=== PATIENT | female | born 1945 | race Caucasian/White ===

== ENCOUNTER 2020-12-19 12:00 | Inpatient (IN) | payer MEDICARE, BC ==
[2020-12-15 10:30] LABS: BASOPHILS # (AUTO) 0.1 X10'3 (0-0.2); BASOPHILS % (AUTO) 0.8 % (0-1); EOSINOPHILS # (AUTO) 0.3 X10'3 (0-0.9); LYMPHOCYTES # (AUTO) 2.1 X10'3 (1.1-4.8); LYMPHOCYTES % (AUTO) 26.1 % (21-51); MEAN CORPUSCULAR HEMOGLOBIN 29.3 PG (27.0-31.0); MEAN CORPUSCULAR HGB CONC 33.9 g/dL (33.0-36.5); MEAN CORPUSCULAR VOLUME 86.4 FL (78-98); MEAN PLATELET VOLUME 7.7 FL (7.4-10.4); MONOCYTES # (AUTO) 0.5 X10'3 (0-0.9); MONOCYTES % (AUTO) 5.8 % (2-12); NEUTROPHILS # (AUTO) 5.2 X10'3 (1.8-7.7); NEUTROPHILS % (AUTO) 63.3 % (42-75); PRE OP HEMATOCRIT 37.9 % (35.0-45.0); PRE OP HEMOGLOBIN 12.9 g/dL (12.0-16.0); PRE OP PLATELET COUNT 286 X10'3 (140-440); RED BLOOD COUNT 4.39 X10'6 (4.20-5.60)
[2020-12-15 10:34] LABS: CLARITY,URINE CLEAR (Clear); COLOR,URINE STRAW (Yellow); GLUCOSE, URINE NEGATIVE (Neg); KETONES,URINE NEGATIVE (Neg); PROTEIN,URINE NEGATIVE (Neg); UA COLLECTION TYPE CLN CATCH MIDSTREAM
[2020-12-15 10:35] LABS: LEUKOCYTE ESTERASE ,URINE TRACE (Neg); NITRITES, URINE NEGATIVE (Neg); OCCULT BLOOD,URINE TRACE-LYSED (Neg); UROBILINOGEN,URINE 0.2 E.U/dL (0.2-1.0)
[2020-12-15 10:36] LABS: BACTERIA,URINE FEW /HPF (Neg); MUCUS STRANDS NONE SEEN /LPF (Neg); RBC,URINE 0-2 /HPF (0-2); SQUAMOUS EPITHELIAL CELL,UR FEW /LPF (FEW); TRANSITIONAL EPI CELLS,URINE FEW /HPF; WBC,URINE 0-4 /HPF (0-4)
[2020-12-15 10:43] LABS: PRE OP PROTIME 10.3 SECONDS (9.0-12.0)
[2020-12-15 10:44] LABS: ALBUMIN 4.1 G/DL (3.4-5.0); ALBUMIN/GLOBULIN RATIO 0.9 (1.1-1.5); ALKALINE PHOSPHATASE 105 IU/L (46-116); BLOOD UREA NITROGEN 17 MG/DL (7-18); BUN/CREATININE RATIO 20.2 (6.6-38.0); CALCIUM 8.9 MG/DL (8.5-10.1); CHLORIDE 104 MMOL/L (99-107); CREATININE 0.84 MG/DL (0.40-0.90); PRE OP ALT 23 U/L (30-65); PRE OP ANION GAP 9 (8-16); PRE OP AST 14 U/L (10-37); PRE OP BILIRUB, TOTAL 0.5 MG/DL (0.0-1.0); PRE OP GLUCOSE 92 MG/DL (70-104); PRE OP POTASSIUM 4.1 MMOL/L (3.4-5.1); PRE OP SODIUM 142 MMOL/L (135-145); TOTAL CARBON DIOXIDE 29.5 MMOL/L (24-32); TOTAL PROTEIN 8.8 G/DL (6.4-8.2); eGFR 66 ML/MIN
[~2020-12-19] VITALS: Ht 152.4 cm; Wt 72.1 kg
[~2020-12-19 12:00] MED LIST: ACET-2119 PO; AMLO2.5T2 PO; ATOR40TA PO; BISA5TAB56 PO; CHOL20004 PO; ESCI5TAB PO; FAMO-128 PO; RESTASIS EACHEYE
[2020-12-20] MEDS ORDERED: ringers solution, lacted 1,000 ML IV SCH (05:00)
[2020-12-20] MEDS ORDERED: famotidine 20mg tablet PO ONE (05:30)
[2020-12-20] MEDS ORDERED: cefazolin/dext.iso 2gm/50ml 50 ML IV ONE (05:30)
[2020-12-20] MEDS ORDERED: nitroPRUSSIDE (NIPRIDE) (200MCG/ML) 100ML Drip IV SCH (06:00)
[2020-12-20] MEDS ORDERED: phenylephrine inj 50 MG in normal saline 250ml IV soln 245 ML IV SCH (06:00)
[2020-12-27] VITALS (20 sets, daily range): BP systolic 113–165; BP diastolic 44–73
[2020-12-27] MEDS ORDERED: phenylephrine inj 50 MG in normal saline 250ml IV soln 245 ML IV SCH (05:30)
[2020-12-27] MEDS ORDERED: famotidine 20mg tablet PO ONE (05:30)
[2020-12-27] MEDS ORDERED: cefazolin/dext.iso 2gm/50ml 50 ML IV ONE (05:30)
[2020-12-27] MEDS ORDERED: ringers solution, lacted 1,000 ML IV SCH ×2 (05:30→08:05)
[2020-12-27] MEDS ORDERED: nitroPRUSSIDE (NIPRIDE) (200MCG/ML) 100ML Drip IV SCH (05:30)
[2020-12-27] MEDS ORDERED: LIDOcaine 1% (10mg/ml) 2ml vial ONE (07:16)
[2020-12-27] MEDS ORDERED: BUPIVAcaine/PF 2.5 mg/ml (0.25%) 30ml vial ONE (07:16)
[2020-12-27] MEDS ORDERED: heparin 10,000 units/1 ML INJ ONE (07:17)
[2020-12-27] MEDS ORDERED: morphine 4 MG/ML inj SYRINge IV PRN (08:05)
[2020-12-27] MEDS ORDERED: PHENYLephrine 10mg/ml inj. 100 MG in normal saline 250ml IV soln 240 ML IV SCH (08:05)
[2020-12-27] MEDS ORDERED: nitroPRUSSIDE sod inj. 50 MG in dextrose 5%-water 248 ML IV SCH (08:05)
[2020-12-27] MEDS ORDERED: fentaNYL/PF 50MCG/1 ML 2ML syringe IV PRN ×2 (08:05)
[2020-12-27] MEDS ORDERED: hydrALAZINE 20mg/ml inj. IV PRN (08:05)
[2020-12-27] MEDS ORDERED: ondansetron/PF 4mg/2ml inj IV PRN (08:05)
[2020-12-27] MEDS ORDERED: morphine 2 MG/ML inj. syringe IV PRN (08:05)
[2020-12-27] MEDS ORDERED: labetalol 20mg/4ml (5mg/ml) syringe IV PRN (08:05)
[2020-12-27] MEDS ORDERED: midazolam 1 mg/ML 2ml injection ONE (08:08)
[2020-12-27] MEDS ORDERED: fentaNYL/PF 50MCG/1 ML 2ML syringe ONE (08:08)
[2020-12-27] MEDS ORDERED: LIDOcaine 2% (20mg/ml) 5ml vial ONE (08:10)
[2020-12-27] MEDS ORDERED: ondansetron/PF 4mg/2ml inj ONE (08:10)
[2020-12-27] MEDS ORDERED: rocuronium 10mg/ml inj IV ONE (08:10)
[2020-12-27] MEDS ORDERED: neostigmine methylsulfate 1 MG/ML 10ml vial ONE (08:10)
[2020-12-27] MEDS ORDERED: propofol inj 20 ML IV ONE (08:10)
[2020-12-27] MEDS ORDERED: dexamethasone sod phosphate 4mg/ml inj. ONE (08:10)
[2020-12-27] MEDS ORDERED: glycopyrrolate 0.2mg/ml inj ONE (08:10)
[2020-12-27] MEDS ORDERED: desflurane 240ml liquid inh. IH ONE (08:55)
[2020-12-27] MEDS ORDERED: heparin 1,000unit/ml 10ml vial 10 ML ONE (09:44)
--- NOTE | 2020-12-27 11:08 | NUR ---
Received from OR via ICU BED, accompanied by Anesthesiologist DR REILLY and report given by Anesthesiolgist. PT HAD A 10L MASK ON AT 100% 02 SATURATION. SHE HAS A 20G PERIPHERAL IV IN L WRIST RUNNING LR AT 100ML/HR. RIN DRAIN MAINTAINING SUCTION, SCANT DRAINAGE IN BULB. DRESSING TO L NECK WITH SLIGHT SHADOWING OF BLOOD. SKIN AROUND DRESSING SUPPLE AND NOT SWOLLEN. WILL CONTINUE TO ASSESS. PUSH, PULLS, BOAT MASTER, AND BUE/LE ALL EQUAL. TONGUE MIDLINE, SMILE SYMMETRICAL. SCDS ON. WOOTEN CATH IN PLACE WITH CLEAR, PALE YELLOW URINE IN ATRIUM. ART LINE IN RUE. Addendum: 12/27/20 at 1138 by Ramon Mujica RN, RN Amended: Links added.
[2020-12-27] MEDS ORDERED: acetaminophen 325mg tablet PO PRN (11:30)
[2020-12-27] MEDS ORDERED: bisacodyl 5mg tablet.DR PO PRN (11:30)
[2020-12-27] MEDS ORDERED: famotidine 20mg tablet PO PRN (11:30)
[2020-12-27] MEDS ORDERED: LIDOcaine 2% 10ml TOPICAL JELLY (Urojet) TP ONE (12:00)
--- NOTE | 2020-12-27 13:18 | NUR ---
Report called to receiving nurse. Transferred via ICU BED WITH ONE BAG OF Belongings . GLASSES INCLUDED IN BAG. Special Issues communicated to receiving nurse. EVELYN MONTIEL. VSS. STATES PAIN IS TOLERABLE. PATIENT NUROLOGICALLY INTACT, RIN AND DRESSING CDI. BLOOD STILL PRESENT TO DRESSING BUT HAS NOT EXTENDED SINCE ADMISSION TO PACU. 3 PERSON PASSIVE TRANSFER TO PCU BED. POSITOINED TO COMFORT AND RN PRESENT TO ACCEPT CARE AT THIS TIME. Addendum: 12/27/20 at 1339 by Ramon Mujica RN RN Amended: Links added.
--- NOTE | 2020-12-27 14:16 | NUR ---
Patient neurologically intact.
[2020-12-27] MEDS: HYDROmorphone inj. 0.5 MG/0.5 ML DISP.SYRIN IV PRN ×2 (15:05→23:18)
--- NOTE | 2020-12-27 17:33 | NUR ---
patient remains neurologically intact
--- NOTE | 2020-12-27 18:15 | NUR ---
Problems reprioritized. Patient report given, questions answered & plan of care reviewed with Sarita MONTIEL. Patient resting comfortably in no acute distress. She remains neurologically intact.
[2020-12-27] MEDS: cycloSPORINE 0.05% ophthalmic emulsion EACHEYE SCH (20:23)
[2020-12-28 02:00] VITALS: BP 148/82
--- NOTE | 2020-12-28 06:24 | NUR ---
Patient in room PCU 3024. I have received report from Deborah MONTIEL and had the opportunity to ask questions and assume patient care. Patient resting in bed in no acute distress.
[2020-12-28 07:00] VITALS: BP 135/54
[2020-12-28] MEDS ORDERED: cholecalciferol (vitamin D3) 1,000 unit (25mcg) tablet PO SCH (08:00)
[2020-12-28] MEDS ORDERED: ESCITALOPRAM OXALATE 5 MG TABLET PO SCH (08:00)
[2020-12-28] MEDS ORDERED: amLODIPine 5mg tablet PO SCH (08:00)
[2020-12-28] MEDS ORDERED: atorvastatin 20mg tablet PO SCH (08:00)
[2020-12-28] MEDS: cycloSPORINE 0.05% ophthalmic emulsion EACHEYE SCH (08:03)
[2020-12-28] MEDS: HYDROmorphone inj. 0.5 MG/0.5 ML DISP.SYRIN IV PRN (09:29)
[2020-12-28 11:00] VITALS: BP 123/44
--- NOTE | 2020-12-28 11:51 | NUR ---
RIN drain and hankins removed without complications
[2020-12-28 15:00] VITALS: BP 102/57
--- NOTE | 2020-12-28 15:49 | NUR ---
Patient was DC to home and was picked up by family. PIV was removed with cannula intact. RX were taken care of by Dr. Mcneil's office. DC instructions and warning s/s were reviewed with the patient and she verbalized understanding. Patient is alert, oriented and appropriate at time of DC.
== END 2020-12-28 15:48 | disposition home or self-care (01) | DRG 39 ==
LOC: PAS IN 12-27 06:07 → UNDOADMIN 12-27 06:07 → PAS IN 12-27 12:04 → PCU 3S 12-27 13:18
PROVIDERS: ADMIT Surgery; ATTEND Surgery
PROC: 03CL0ZZ Extirpation of Matter from Left Internal Carotid Artery, Open Approach (ICD-10-PCS; 2020-12-27)
PROC: 03UN0KZ Supplement Left External Carotid Artery with Nonautologous Tissue Substitute, Open Approach (ICD-10-PCS; 2020-12-27)
PROC: 03UL0KZ Supplement Left Internal Carotid Artery with Nonautologous Tissue Substitute, Open Approach (ICD-10-PCS; 2020-12-27)
PROC: 03CJ0ZZ Extirpation of Matter from Left Common Carotid Artery, Open Approach (ICD-10-PCS; 2020-12-27)
PROC: 03UJ0KZ Supplement Left Common Carotid Artery with Nonautologous Tissue Substitute, Open Approach (ICD-10-PCS; 2020-12-27)
PROC: 03CN0ZZ Extirpation of Matter from Left External Carotid Artery, Open Approach (ICD-10-PCS; principal; 2020-12-27 08:55)
DX: I65.22 Occlusion and stenosis of left carotid artery (principal); I10 Essential (primary) hypertension; E78.5 Hyperlipidemia, unspecified; F32.A Depression, unspecified; J45.909 Unspecified asthma, uncomplicated; E66.9 Obesity, unspecified; R29.6 Repeated falls; Z80.1 Family history of malignant neoplasm of trachea, bronchus and lung; Z82.49 Family history of ischemic heart disease and other diseases of the circulatory system; Z88.8 Allergy status to other drugs, medicaments and biological substances; Z68.31 Body mass index [BMI] 31.0-31.9, adult
CPT/HCPCS: 36415; 80053; 81001; 82948; 85025; 85610; 85730; 86885; 86900; 86901; 87081; 87088; 95813; A4618; A6258; A7000; C1768; G0378; J1100; J1170; J1644; J2001; J2250; J2270; J2370; J2405; J2704; J2710; J3010; J3490; J7040; J7050; J7120; U0003; U0005

== ENCOUNTER 2024-04-27 12:52 | Emergency (ER) | payer MEDICARE, BC ==
[~2024-04-27] VITALS: Ht 152.4 cm; Wt 65.5 kg
[~2024-04-27 12:52] MED LIST changes: +BISA-111 PO; -BISA5TAB56 PO
[2024-04-27 13:18] VITALS: BP 138/63; TEMP 98
[2024-04-27 14:10] LABS: BASOPHILS # (AUTO) 0.1 X10'3 (0-0.2); BASOPHILS % (AUTO) 0.7 % (0-1); EOSINOPHILS # (AUTO) 0.5 X10'3 (0-0.9); EOSINOPHILS % (AUTO) 6.1 % (0-6); HEMATOCRIT 38.6 % (35.0-45.0); HEMOGLOBIN 12.8 g/dl (12.0-16.0); LYMPHOCYTES # (AUTO) 1.2 X10'3 (1.1-4.8); MEAN CORPUSCULAR HEMOGLOBIN 28.8 PG (27.0-31.0); MEAN CORPUSCULAR HGB CONC 33.1 g/dL (33.0-36.5); MEAN CORPUSCULAR VOLUME 87.1 FL (78-98); MEAN PLATELET VOLUME 8.1 FL (7.4-10.4); MONOCYTES # (AUTO) 0.5 X10'3 (0-0.9); MONOCYTES % (AUTO) 6.3 % (2-12); NEUTROPHILS # (AUTO) 5.4 X10'3 (1.8-7.7); NEUTROPHILS % (AUTO) 70.9 % (42-75); PLATELET COUNT 274 X10'3 (140-440); RED BLOOD COUNT 4.43 X10'6 (4.20-5.60); RED CELL DISTRIBUTION WIDTH 14.3 % (11.5-14.5); WHITE BLOOD COUNT 7.6 X10'3 (4.5-11.0)
[2024-04-27] MEDS ORDERED: AMOX-580 PO (14:28)
[2024-04-27] MEDS ORDERED: PRED20TA PO (14:28)
[2024-04-27] MEDS ORDERED: ALBU8HFA PO (14:31)
[2024-04-27 14:33] LABS: ALBUMIN 3.9 G/DL (3.4-5.0); ANION GAP 8 (8-16); BLOOD UREA NITROGEN 11 MG/DL (7-18); BUN/CREATININE RATIO 17.5 (10.0-20.0); CALCIUM 9.2 MG/DL (8.5-10.1); CHLORIDE 103 MMOL/L (99-107); CREATININE 0.63 MG/DL (0.40-0.90); GLUCOSE 97 MG/DL (70-104); POTASSIUM 4.1 MMOL/L (3.5-5.1); PRO BRAIN NATRIURETIC PEPTIDE 59 PG/ML (0-450); SODIUM 142 MMOL/L (135-145); TOTAL CARBON DIOXIDE 30.6 MMOL/L (24-32); eCRCL 52 ML/MIN; eGFR > 90 ML/MIN
[2024-04-27] MEDS: ipratropium/albuterol 3ml nebule NEB ONE (14:59)
[2024-04-27 15:00] VITALS: PULSE 92; PULSE 94; RESP 20; O2SAT 99
[2024-04-27] MEDS: dexamethasone sod phosphate 10mg/ml inj PO STA (15:13)
== END 2024-04-27 15:19 | disposition home or self-care (01) ==
LOC: ER 12:53
DX: J40 Bronchitis, not specified as acute or chronic (principal); Z88.0 Allergy status to penicillin; Z88.1 Allergy status to other antibiotic agents; Z88.2 Allergy status to sulfonamides; Z88.8 Allergy status to other drugs, medicaments and biological substances
CPT/HCPCS: 36415; 71046; 80048; 83880; 85025; 94640; 99284; J1100